=== PATIENT | female | born 1975 | race Caucasian/White ===

== ENCOUNTER → 2018-10-27 | Outpatient (CLI) | payer OTHER, SELFPAY ==
--- NOTE | 2018-10-27 17:17 | CT_ITS ---
STUDY: CT MAXILLOFACIAL SINUSES REASON FOR EXAM: Female, 43 years old. Sinusitis. RADIATION DOSAGE (If Supplied By Facility): CTDIvol = ( 33.06 ) mGy, DLP = ( 846.25 ) mGycm TECHNIQUE: The patient was scanned in a multi detector CT scanner. High resolution axial imaging was performed without the administration of intravenous contrast material. Sagittal and coronal images were reconstructed. Individualized dose optimization techniques were used for this CT. COMPARISON: None. FINDINGS: FRONTAL SINUSES: Minimal mucoperiosteal thickening in the right frontal sinus, consistent with chronic disease. No evidence for acute sinusitis. ETHMOIDAL SINUSES: Mild mucoperiosteal thickening in multiple right ethmoid air cells. No evidence for acute sinusitis. MAXILLARY SINUSES: Minimal mucoperiosteal thickening in the right maxillary sinus, consistent with chronic. No evidence for acute sinusitis. SPHENOIDAL SINUSES: Normal aeration, without mucosal inflammatory disease. There is partial opacification of the right maxillary infundibulum due to mucoperiosteal thickening or retained secretions. The left maxillary and fibula is patent. There are normal uncinate processes, ethmoid bullae, and hiatus semilunaris. The right nasal frontal duct is partially opacified by mucoperiosteal thickening or retained secretions. Normal bilateral middle turbinates. Normal bilateral inferior turbinates. There is a mild left sided nasal septal deviation with a left sided nasal septal spur. There is patency of the bilateral nasal airways. The visualized osseous structures are normal. The visualized bilateral orbital contents are normal. CT/Sinus/Facial Bone IMPRESSION: Very mild chronic right ethmoid, maxillary, and frontal sinusitis. No evidence for acute sinusitis. Partial opacification of the right maxillary infundibulum and the right nasofrontal duct due to retained secretions and/or mucoperiosteal thickening. Electronically Signed: Tremayne Fields MD at 5:59 EDT , Service support ,
== END | disposition home or self-care (01) ==
PROVIDERS: Family Provider Family Medicine; PCP Family Medicine; Referring Provider Otolaryngology; Visit Provider Otolaryngology
DX: J32.9 Chronic sinusitis, unspecified (principal)
CPT/HCPCS: 70486

== ENCOUNTER 2024-06-08 08:30 | Outpatient (RCR) | payer OTHER, SELFPAY ==
--- NOTE | 2024-05-11 18:03 | HP.OTEVAL ---
Patient's Visit Information Visit Information Visit Information: PAUL MONTES is a 48 year old F, referred to Occupational Therapy by Alyln Aguillon MD, with a diagnosis of left wrist pain. Date of Evaluation: 05/08/24 Occupational Therapist: DOMINIC Scales/Marito, CHT Subjective Subjective: This 48 year old female was seen for OT eval with wrist pain - states started in November and she has noticed swelling and increase pain. pt is right handed pt states did give her medication for pain but did not consistently take medication pt states she did put her in a wrist brace - but currently does not have it with her. pt states all ADLs and work tasks are limited at this time. Pain left wrist: Current Pain Intensity: 2 Pain Intensity Range: 4 ROM Forearm: right/left WNL Wrist: right 70/70 left 75/55 CMC: right 5 left 10* MP: right 40 left 35 IP: right 40 left 40 ROM Comments: pt demo with limited left digit ROM and wrist ROM right RD 10 left 10 right UD 25 left 20 Strength Education Administrator: right 50# left 50# Lateral Pinch: right 12# left 8# Tripod Pinch: right 10# left 10# Sensation Sensation Comments: burning sensation throughout the radial nerve or 1st dorsal compartment Quick DASH-Disab of Arm,Shoulder& Hand Quick DASH Score: 51.6650 Goals Goal:: pt will demo a increase in left sprinkler fitter helper strength by 20# to return to her PLOF with performing ADLS Goal:: pt will demo a increase in total wrist ROM by 10* to return pt to her PLOF by d/c Goal:: pt will report no pain greater than 2/10 with use of her left UE with ADLs and IADls by d.c Goal:: Pt will demo understanding of joint protection and ergonomics when performing BADLs and IADLs by d/c Pt will demo understanding of adaptive Equipment use to decrease stress on joints to allow pt to perform BADSL and IADLS at MACHO level. Goal:: Pt will demo understanding of using supportive bracing 80% of workday/ADLS to decrease stress on tendon origin to allow healing and decrease pain by end of 2nd session. Rehabilitation General Assessment: pt demo with positive 1st dorsal compartment pain and demo with a edema in the 1st dorsal region. this is limiting pts IND with ADLs and IADls. pt would benefit form skilled OT services 1-2x week for 4- 6 weeks to return pt to a PLOF. Today therapist ed. pt on POC pt demo understanding and agree to POC. Anticipated Interventions Anticipated Interventions: A/AAROM/PROM, Strengthening, Triggerpoint Release, Modalities, Orthoses, Joint Protection/Energy Conservation, Education re assistive Equipment, Education re Diagnosis and Home Program Visit Plan Frequency: 1-2x /Week Duration: 4-6 Weeks General Plan: will place pt in thumb spica to decrease swelling- Ice/heat trigger point release Ed. on wrist ergonomics strengthen with eccentric /isometric TEXT: Thank you for the opportunity to evaluate your patient. For Medicare and Medicare HMO plans, please review the plan of care and approve it. It will need to be FAXED BACK to us at [phone] for Medicare purposes. Please let me know if there are questions or concerns regarding this plan of care. Physician Signature: Date:
--- NOTE | 2024-09-16 13:51 | HP.OTDCSUM ---
Discharge Summary D/C Summary: It has been my pleasure to treat PAUL MONTES under orders from Allyn Aguillon MD, for the diagnosis of left wrist pain for a total of 6 visit(s). Please see the following information for a summary of their discharge status. Overall Improvement % Improvement: 80 Objective Objective/Function: pt demo full wrist ROM and no pain with radial or ulnar deviation. Goals Patient Goals: Regain Mobility, Decrease Pain and Use Hand/Wrist/Arm Normally Again Goal:: pt will demo a increase in left accounts receivable analyst strength by 20# to return to her PLOF with performing ADLS Goal:: pt will demo a increase in total wrist ROM by 10* to return pt to her PLOF by d/c Goal:: pt will report no pain greater than 2/10 with use of her left UE with ADLs and IADls by d.c Goal:: Pt will demo understanding of joint protection and ergonomics when performing BADLs and IADLs by d/c Pt will demo understanding of adaptive Equipment use to decrease stress on joints to allow pt to perform BADSL and IADLS at MACHO level. Goal:: Pt will demo understanding of using supportive bracing 80% of workday/ADLS to decrease stress on tendon origin to allow healing and decrease pain by end of 2nd session. Plan Plan: Pt d/c with HEP bracing and k-tape as needed D/C Information Discharge Comments: pt has met OT goals and will cont with HEP. Pt agrees with d.c d/c sentence: If there are questions or concerns regarding this patient's occupational therapy, please fell free to call me at [phone]. Thank you for the referral of this patient. Sincerely, Edith Wooten, OTR/L, CHT
== END 2024-06-08 19:00 | disposition home or self-care (01) ==
LOC: OT 08:30
PROVIDERS: PCP Family Medicine; Referring Provider Family Medicine; Visit Provider Family Medicine
DX: M25.532 Pain in left wrist (principal)
CPT/HCPCS: 97035; 97140; 97166; 97530